=== PATIENT | female | born 1955 | race Caucasian/White ===

== ENCOUNTER → 2023-10-09 15:12 | Outpatient (REF) | payer MEDICARE, BC, SELFPAY | LOC: CLAB 15:12 | PROVIDERS: ATTENDING PHYSICIAN Urology | DX: C67.9 Malignant neoplasm of bladder, unspecified (principal) | CPT/HCPCS: 88112 ==

== ENCOUNTER → 2024-02-07 09:55 | Outpatient (REF) | payer MEDICARE, BC, SELFPAY | LOC: HWRAD 09:55 | PROVIDERS: ATTENDING PHYSICIAN Urology; FAMILY PHYSICIAN Internal Medicine | DX: R31.0 Gross hematuria (principal); C67.9 Malignant neoplasm of bladder, unspecified | CPT/HCPCS: 74178; Q9967 ==

== ENCOUNTER → 2024-07-28 16:58 | Outpatient (REF) | payer MEDICARE, BC, SELFPAY | LOC: HWRAD 16:58 | PROVIDERS: ATTENDING PHYSICIAN Internal Medicine | DX: M25.551 Pain in right hip (principal); M25.552 Pain in left hip; M54.40 Lumbago with sciatica, unspecified side | CPT/HCPCS: 72114; 73523 ==

== ENCOUNTER → 2024-09-23 15:38 | Outpatient (REF) | payer MEDICARE, BC, SELFPAY | LOC: CLAB 15:38 | PROVIDERS: ATTENDING PHYSICIAN Urology | DX: C67.9 Malignant neoplasm of bladder, unspecified (principal) | CPT/HCPCS: 88112 ==

== ENCOUNTER → 2025-06-22 16:45 | Outpatient (REF) | payer MEDICARE, BC, SELFPAY | LOC: CLAB 16:45 | PROVIDERS: ATTENDING PHYSICIAN Urology | DX: C67.9 Malignant neoplasm of bladder, unspecified (principal) | CPT/HCPCS: 88112 ==